=== PATIENT | male | born 1940 | race Caucasian/White ===

== ENCOUNTER 2018-09-20 17:13 | Emergency (ER) | payer MEDICARE, BC ==
[2018-09-20 17:26] VITALS: BP 149/75
--- NOTE | 2018-09-20 18:06 | ER Document Report ---
ED Medical Screen (RME) - General Chief Complaint: Leg Swelling Stated Complaint: LEG PAIN Time Seen by Provider: 09/20/18 18:04 Notes: 78 years old male presents today with swelling of the right lower extremity including calf and lower part of the thigh for the last few days. Noted today more prominently. Last Monday they returned from a cruise, driving from [place] to here. He has a previous history of DVT. Denies any difficulty in breathing. Denies any chest pain. On examination right leg almost double the size of left leg. With calf swelling tightness and tenderness extending to the distal portion of the thigh. TRAVEL OUTSIDE OF THE [place] IN LAST 30 DAYS: No - Related Data Allergies/Adverse Reactions: morphine [Morphine] Allergy (Verified 09/20/18 17:16) Past Medical History - Past Medical History Cardiac Medical History: Reports: Hx Heart Attack, Hx Hypercholesterolemia Renal/ Medical History: Reports: Hx Benign Prostatic Hyperplasia, Hx Kidney Stones Psychiatric Medical History: Reports: Hx Depression Past Surgical History: Reports: Hx Cardiac Catheterization, Hx Kidney (Renal Surgery) - removal of kidney stone - Immunizations Immunizations up to date: Yes Hx Diphtheria, Pertussis, Tetanus Vaccination: Yes Physical Exam - Vital signs Vitals: Temp Pulse Resp BP Pulse Ox 98.1 F 75 17 149/75 H 96 09/20/18 17:25 09/20/18 17:25 09/20/18 17:25 09/20/18 17:25 09/20/18 17:25 Course - Vital Signs Vital signs: Temp Pulse Resp BP Pulse Ox 98.1 F 75 17 149/75 H 96 09/20/18 17:25 09/20/18 17:25 09/20/18 17:25 09/20/18 17:25 09/20/18 17:25
[2018-09-20 18:40] LABS: ABSOLUTE BASOPHILS # (AUTO) 0.1 10^3/uL (0.0-0.2); ABSOLUTE EOSINOPHILS # (AUTO) 0.1 10^3/uL (0.0-0.6); ABSOLUTE LYMPHOCYTES (AUTO) 3.3 10^3/uL (0.5-4.7); ABSOLUTE MONOCYTES (AUTO) 0.9 10^3/uL (0.1-1.4); ABSOLUTE NEUT (AUTO) 5.8 10^3/uL (1.7-8.2); BASOPHILS % (AUTO) 0.7 % (0-2); EOSINOPHILS % (AUTO) 1.3 % (0-6); HEMOGLOBIN 13.2 g/dL (13.5-17.0); LYMPHOCYTES % (AUTO) 32.3 % (13-45); MEAN CORPUSCULAR HEMOGLOBIN 31.3 pg (27.0-33.4); MEAN CORPUSCULAR HGB CONC 34.6 g/dL (32.0-36.0); MEAN CORPUSCULAR VOLUME 90 fl (80-97); PLATELET COUNT 273 10^3/uL (150-450); RED BLOOD COUNT 4.21 10^6/uL (4.35-5.55); RED CELL DISTRIBUTION WIDTH 13.6 % (11.5-14.0); SEGMENTED NEUTROPHILS % (AUTO) 56.7 % (42-78); TOTAL CELLS COUNTED % (AUTO) 100 %; WHITE BLOOD COUNT 10.2 10^3/uL (4.0-10.5)
[2018-09-20 18:46] LABS: INTERNATIONAL RATION (INR) 1.03
[2018-09-20 18:48] LABS: D-DIMER 3.43 ug/mL (0.00-0.50)
[2018-09-20 19:01] LABS: ALANINE AMINOTRANSFERASE 33 U/L (21-72); ALBUMIN 4.3 g/dL (3.5-5.0); ALKALINE PHOSPHATASE 91 U/L (38-126); ANION GAP 10 (5-19); ASPARTATE AMINO TRANSFERASE 44 U/L (17-59); BILIRUBIN,DIRECT 0.2 mg/dL (0.0-0.4); BILIRUBIN,TOTAL 0.5 mg/dL (0.2-1.3); BLOOD UREA NITROGEN 28 mg/dL (7-20); CALCIUM 9.2 mg/dL (8.4-10.2); CARBON DIOXIDE 23 mmol/L (22-30); CHLORIDE 109 mmol/L (98-107); GLUCOSE 112 mg/dL (75-110); POTASSIUM 4.2 mmol/L (3.6-5.0)
[2018-09-20] MEDS ORDERED: RIVAROXABAN 15 MG TABLET PO ONE (19:40)
--- NOTE | 2018-09-20 19:47 | ER Document Report ---
ED Extremity Problem, Lower - General Chief Complaint: Leg Swelling Stated Complaint: LEG PAIN Time Seen by Provider: 09/20/18 18:04 Primary Care Provider: CARMENZA CHWE MD [Primary Care Provider] - Follow up as needed TRAVEL OUTSIDE OF THE [place] IN LAST 30 DAYS: No - HPI Notes: Patient is a 78-year-old male that presents to the emergency department for chief complaint of right leg swelling and pain. 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 He states he had been on Coumadin for this DVTs in the past. He states today he started having a cramping in the back of his right leg and then noticed it began to swell. He is concerned that he has a new acute DVT. Patient denies any associated chest pain, shortness of breath, dyspnea, syncope or palpitations. He denies ever having a PE in the past. Patient denies injury to his leg. Past Medical History: Hyperlipidemia Past Surgical History: Kidney stone removal Social History: Denies drugs alcohol and tobacco Family History: Reviewed and noncontributory for presenting illness Allergies: Reviewed, see documented allergy list. REVIEW OF SYSTEMS: CONSTITUTIONAL : No fever No chills No diaphoresis No recent illness EENT: No vision changes No congestion No sore throat CARDIOVASCULAR: No chest pain No palpitations RESPIRATORY: No shortness of breath No cough No difficulty breathing GASTROINTESTINAL: No abdominal pain No nausea No vomiting No diarrhea GENITOURINARY: No dysuria No hematuria No difficulty urinating MUSCULOSKELETAL: No back pain leg pain No arm pain SKIN: No rashes No lesions LYMPHATIC: No swollen, enlarged glands. NEUROLOGICAL: No lightheadedness No headache No weakness No paresthesias PSYCHIATRIC: No anxiety No depression PHYSICAL EXAMINATION: Vital signs reviewed, nursing noted reviewed. GENERAL: Well-appearing, well-nourished and in no acute distress. HEAD: Atraumatic, normocephalic. EYES: Eyes appear normal, extraocular movements intact, sclera anicteric, conjunctiva are normal. ENT: nares patent, oropharynx clear without exudates. Moist mucous membranes. NECK: Normal range of motion, supple without lymphadenopathy LUNGS: Breath sounds clear to auscultation bilaterally and equal. No wheezes rales or rhonchi. HEART: Regular rate and rhythm without murmurs ABDOMEN: Soft, nontender, normoactive bowel sounds. No rebound, guarding, or rigidity. No masses appreciated. EXTREMITIES: Right calf tenderness with tense edema and mild erythema, normal left lower extremity with no edema or tenderness, good range of motion. NEUROLOGICAL: No focal neurological deficits. Moves all extremities spontaneously Motor and sensory grossly intact on exam. PSYCH: Normal mood, normal affect. SKIN: Warm, Dry, normal turgor, mild erythema to right lower extremity - Related Data Allergies/Adverse Reactions: morphine [Morphine] Allergy (Verified 09/20/18 17:16) Past Medical History - Social History Smoking Status: Never Smoker Chew tobacco use (# tins/day): No Frequency of alcohol use: None Drug Abuse: None Family History: Reviewed & Not Pertinent, CAD, Hyperlipidemia, Hypertension Patient has suicidal ideation: No Patient has homicidal ideation: No - Past Medical History Cardiac Medical History: Reports: Hx Heart Attack, Hx Hypercholesterolemia Renal/ Medical History: Reports: Hx Benign Prostatic Hyperplasia, Hx Kidney Stones. Denies: Hx Peritoneal Dialysis Psychiatric Medical History: Reports: Hx Depression Past Surgical History: Reports: Hx Cardiac Catheterization, Hx Kidney (Renal Surgery) - removal of kidney stone - Immunizations Immunizations up to date: Yes Hx Diphtheria, Pertussis, Tetanus Vaccination: Yes Physical Exam - Vital signs Vitals: Temp Pulse Resp BP Pulse Ox 98.1 F 75 17 149/75 H 96 09/20/18 17:25 09/20/18 17:25 09/20/18 17:25 09/20/18 17:25 09/20/18 17:25 Course - Re-evaluation Re-evalutation: 09/20/18 19:46 Vitals reviewed. Nursing notes reviewed. Patient is in no acute respiratory distress. He has no symptoms concerning for acute PE. Patient does have a new DVT in his right calf. His pain is minimal and he did not want any medication for pain. The remainder of his workup is unremarkable. He has normal renal function and will be started on Xarelto for his acute DVT. Patient was counseled on elevating and warm compresses to his right lower extremity. He will see Dr. Chew tomorrow for close outpatient follow-up. Patient counseled on symptoms to return to the emergency room and verbalized understanding. He is stable at time of discharge. Laboratory 09/20/18 09/20/18 09/20/18 18:30 18:30 18:30 WBC 10.2 RBC 4.21 L Hgb 13.2 L Hct 38.0 MCV 90 MCH 31.3 MCHC 34.6 RDW 13.6 Plt Count 273 Seg Neutrophils % 56.7 Lymphocytes % 32.3 Monocytes % 9.0 Eosinophils % 1.3 Basophils % 0.7 Absolute Neutrophils 5.8 Absolute Lymphocytes 3.3 Absolute Monocytes 0.9 Absolute Eosinophils 0.1 Absolute Basophils 0.1 PT 14.0 INR 1.03 D-Dimer 3.43 H Sodium 142.0 Potassium 4.2 Chloride 109 H Carbon Dioxide 23 Anion Gap 10 BUN 28 H Creatinine 1.18 Est GFR ( Amer) > 60 Est GFR (Non-Af Amer) > 60 Glucose 112 H Calcium 9.2 Total Bilirubin 0.5 Direct Bilirubin 0.2 Neonat Total Bilirubin Not Reportable Neonat Direct Bilirubin Not Reportable Neonat Indirect Bili Not Reportable AST 44 ALT 33 Alkaline Phosphatase 91 Total Protein 7.0 Albumin 4.3 09/20/18 19:47 - Vital Signs Vital signs: Temp Pulse Resp BP Pulse Ox 98.1 F 75 17 149/75 H 96 09/20/18 17:25 09/20/18 17:25 09/20/18 17:25 09/20/18 17:25 09/20/18 17:25 - Laboratory Result Diagrams: 09/20/18 18:30 09/20/18 18:30 Laboratory results interpreted by me: 09/20/18 09/20/18 09/20/18 18:30 18:30 18:30 RBC 4.21 L Hgb 13.2 L D-Dimer 3.43 H Chloride 109 H BUN 28 H Glucose 112 H Discharge - Discharge Clinical Impression: DVT (deep venous thrombosis) Qualifiers: DVT location: lower extremity Affected thrombotic vein of extremity: unsp ecified vein of extremity Chronicity: acute Laterality: right Qualified Code(s): I82.401 - Acute embolism and thrombosis of unspecified deep veins of right lower extremity Condition: Stable Disposition: HOME, SELF-CARE Instructions: DVT Outpatient Treatment ([facility]) Additional Instructions: Please return to the emergency department if you have any worsening, or concern of your symptoms. Please return to the emergency department if you develop chest pain, difficulty breathing, severe abdominal pain, or ongoing vomiting. Please follow-up with your primary care physician in 1 day and any other recommended physicians. If prescribed, take all medications as directed. If you have any questions or concerns do not hesitate to return the emergency department for evaluation. [] Prescriptions: Rivaroxaban [Xarelto 15 mg Tablet] 15 mg PO BID #42 tablet Referrals: CARMNEZA CHEW MD [Primary Care Provider] - Follow up tomorrow
--- NOTE | 2018-09-20 20:33 | VASCULAR PRELIM REPORT ---
Provider Note Provider Note: DVT in right Popliteal vein, Full reprt to follow.
--- NOTE | 2018-09-21 08:08 | XCELERA REPORT ---
[address] [address] Lower Extremity Venous Evaluation Procedure: Color flow and duplex imaging of the veins of the right lower extremity as well as the left Common Femoral vein. Right Sided Venous Evaluation Echogenic, no flow, increased size, indistinct edges in most of the Popliteal vein. Likewise in the distal Greater Saphenous vein. Otherwise normal vessel filling wall to wall, compression and augmentation as well as Colour flow down to the infrageniculate veins. Left Sided Venous Evaluation The left common femoral vein is fully compressible. Spontaneous and phasic flow is present in the left common femoral vein. Critical Findings Discussed with Dr Boone at about 2030. Interpretation Summary Deep venous thrombosis in the Popliteal vein, likely subacute to chronic, also Small Saphenous vein on the right. Name: JACKSON GREENBERG Age: 78 yrs Gender: Male : 1940 Patient Status: Emergency Patient Location: ER Study Date: 09/20/2018 06:33 PM Reason For Study: Right lower leg venous thrombosis Ordering Physician: SARATH RUANO Performed By: Kait Kirk : SARATH RUANO > Sanjeev Fraser
== END 2018-09-20 20:14 | disposition home or self-care (01) ==
LOC: ER 17:13
DX: I82.431 Acute embolism and thrombosis of right popliteal vein (principal); I25.2 Old myocardial infarction; Z88.5 Allergy status to narcotic agent
CPT/HCPCS: 99284; 36415; 85025; 85610; 80053; 85379; 93971 ×2; A9270